=== PATIENT | female | born 1955 | race Caucasian/White ===

== ENCOUNTER → 2017-10-26 | Outpatient (CLI) | payer OTHER ==
[2017-10-28 16:09] LABS: HPV Genotype 16 Not Detected (NOTDET); HPV Genotype 18 Not Detected (NOTDET)
[2017-11-02 14:48] LABS: HPV High Risk Other Not Detected (NOTDET)
== END ==
LOC: OLS 15:17
PROVIDERS: Obstetrics & Gynecology Gynecology
DX: Z12.4 Encounter for screening for malignant neoplasm of cervix (principal)
CPT/HCPCS: 87624; G0123

== ENCOUNTER → 2018-01-12 | Outpatient (CLI) | payer OTHER | LOC: LAB 13:20 → LAB SHORT 13:20 | DX: R82.79 Other abnormal findings on microbiological examination of urine (principal) | CPT/HCPCS: 87077; 87086; 87186 ==

== ENCOUNTER → 2018-10-27 | Outpatient (CLI) | payer OTHER ==
[2018-10-31 14:07] LABS: HPV 16 Negative (Negative); HPV 18 Negative (Negative); HPV OTHER HR TYPES Negative (Negative)
== END ==
LOC: LAB 15:06 → LAB SHORT 15:06
PROVIDERS: Obstetrics & Gynecology Gynecology
DX: Z91.89 Other specified personal risk factors, not elsewhere classified (principal)
CPT/HCPCS: 87624; G0123

== ENCOUNTER 2018-12-26 08:08 | Day surgery (SDC) | payer OTHER ==
[2018-12-28 14:49] LABS: Performing Lab SYMBIODX
[2019-01-05] MEDS ORDERED: Prinivil10 MG PO (10:24)
[2019-01-05 16:02] LABS: Result SEE PATHOTH RESULTS; Test Name TISSUE BLOCK
== END 2018-12-26 22:47 | disposition home or self-care (01) ==
LOC: MOI US 08:08
PROVIDERS: Obstetrics & Gynecology Gynecology
PROC: 0HBU3ZX Excision of Left Breast, Percutaneous Approach, Diagnostic (ICD-10-PCS; principal; 2018-12-26)
DX: C50.412 Malignant neoplasm of upper-outer quadrant of left female breast (principal); Z17.1 Estrogen receptor negative status [ER-]
CPT/HCPCS: 19083; 77065; 88305; 88360; 88374; A4648; G0279

== ENCOUNTER 2019-01-06 08:24 | Day surgery (SDC) | payer OTHER ==
[~2019-01-06 08:24] MED LIST: Prinivil10 MG PO
== END 2019-01-06 23:04 | disposition home or self-care (01) ==
LOC: MOI US 08:24
PROC: BH41ZZZ Ultrasonography of Left Breast (ICD-10-PCS; principal; 2019-01-06)
DX: C50.312 Malignant neoplasm of lower-inner quadrant of left female breast (principal)
CPT/HCPCS: 19285; 77065

== ENCOUNTER 2019-01-11 07:51 | Day surgery (SDC) | payer OTHER ==
[~2019-01-11] VITALS: Ht 175.3 cm; Wt 115.2 kg
--- NOTE | 2019-01-11 12:56 | NUR ---
PATIENT GAVE PERMISSION FOR ME TO CARE FOR HER TODAY 01/11/19. History, Chart, Medications and Allergies reviewed before start of procedure.Patient confirms NPO status and agrees with scheduled surgery. Patient reports completing Chlorhexadine shower X2 prior to admission to hospital.Surgical site prepped with 2% Chlorhexidine cloth wipe. Lungs clear T/O to Auscultation.
--- NOTE | 2019-01-11 16:12 | NUR ---
This pt gave consent to this student nurse to be in the room while on surgery and view her chart.
--- NOTE | 2019-01-11 16:23 | NUR ---
STILL A LITTEL NAUSEAED, DECLINED PAIN MED @ THIS TIME.
--- NOTE | 2019-01-11 18:10 | NUR ---
PT WITH NAUSEA, IMMEDIATLY UPON ARRIVAL TO STEP MEDICATED WITH SECOND DOSE OF ZOFRAN. SOME INITIAL REPORT OF RELEIF OF NAUSEA REPORTED AFTER ZOFRAN. PT ABLE TO DRINK APPROX 2 OZ WATER, ATE ONE CRACKER THAN REPORTS INCREASED WAVE OF NAUSEA. HAS NOT SUBSIDED. CALL PLACED TO DR. SHELL TO SEE PATIENT. PATEINT REPORTS DOES NOT FEEL ABLE TO DISCHARGE AT THIS TIME.
--- NOTE | 2019-01-11 18:45 | NUR ---
DR SHELL CAME TO SEE PATIENT, ADMITTED TO ROOM 229. BEDSIDE REOPRT MEG MCKEON RN.
--- NOTE | 2019-01-12 04:33 | NUR ---
SUMMARY POD 1 S/P LEFT LUMPECTOMY. PT DOING GREAT THIS MORNING. WAS A LITTLE NAUSOUS WITH A MARQUEZ DURING FIRST PART OF SHIFT BUT THAT HAS RESOLVED. PT IS NOW TOLERATING PO, VOIDING WELL. DRESSING TO LEFT BREAST CDI AND BREAST BINDER IN PLACE. PLAN FOR DC HOME THIS AM. CALL LIGHT IN REACH.
--- NOTE | 2019-01-12 09:15 | NUR ---
discharge instructions reviewed with pt verbalized dr larson by earlier pt to leave dressing off after shower tomorrow
== END 2019-01-12 09:30 | disposition home or self-care (01) ==
LOC: RAD 07:51 → ORSCMMR 07:54 → RAD 08:45 → SURS 18:30 → RAD 01-12 09:30
PROVIDERS: Surgery
PROC: 0HBU0ZZ Excision of Left Breast, Open Approach (ICD-10-PCS; principal; 2019-01-11 14:00)
DX: C50.312 Malignant neoplasm of lower-inner quadrant of left female breast (principal); C77.3 Secondary and unspecified malignant neoplasm of axilla and upper limb lymph nodes; Z88.5 Allergy status to narcotic agent; Z88.8 Allergy status to other drugs, medicaments and biological substances; Z88.0 Allergy status to penicillin; Z17.1 Estrogen receptor negative status [ER-]
CPT/HCPCS: 38792; 76098; 88307; 88360; A9270-GY; A9520; J0690; J1100; J2250; J2370; J2405; J2704; J2710; J2765; J3010; J7120; Q9968

== ENCOUNTER 2019-01-27 13:48 | Emergency (ER) | payer OTHER ==
[~2019-01-27] VITALS: Ht 175.3 cm; Wt 117.9 kg
[2019-01-27 14:53] LABS: BASOPHILS ABSOLUTE AUTO 0.03 K/mm3 (0.00-0.23); BASOPHILS PERCENT AUTO 1 % (0-2); EOSINOPHILS ABSOLUTE AUTO 0.35 K/mm3 (0.00-0.68); EOSINOPHILS PERCENT AUTO 6 % (0-6); Hematocrit 40.8 % (33.0-51.0); Hemoglobin 12.5 g/dL (11.5-16.0); IMMATURE GRAN ABSOLUTE AUTO 0.02 K/mm3 (0.00-0.10); IMMATURE GRAN PERCENT AUTO 0 % (0-1); LYMPHOCYTES ABSOLUTE AUTO 1.56 K/mm3 (0.84-5.20); LYMPHOCYTES PERCENT AUTO 29 % (21-46); MONOCYTES ABSOLUTE AUTO 0.53 K/mm3 (0.16-1.47); MONOCYTES PERCENT AUTO 10 % (4-13); Mean Corpuscular HGB 24.8 pg (26.0-34.0); Mean Corpuscular HGB Conc 30.6 g/dL (31.5-36.5); Mean Corpuscular Volume 81 fL (80-100); Mean Platelet Volume 9.6 fL (9.1-12.4); NEUTROPHILS ABSOLUTE AUTO 2.98 K/mm3 (1.96-9.15); NEUTROPHILS PERCENT AUTO 55 % (41-73); Platelet Count 258 K/mm3 (150-400); RDW Coefficient Variation 15.6 % (11.7-14.2); RDW Standard Deviation 45.1 fL (35.1-46.3); Red Blood Cell Count 5.05 M/mm3 (3.80-5.20); White Blood Cell Count 5.47 K/mm3 (4.00-11.30)
[2019-01-27 15:25] LABS: Alanine Aminotransfer (ALT/SGP 17 U/L (12-78); Albumin, Blood 3.8 g/dL (3.4-5.0); Albumin/Globulin Ratio 1.1 (0.8-1.8); Alk Phos 87 U/L (50-136); Anion Gap 7 mmol/L (6-16); Aspartate Aminotrans (AST/SGOT 16 U/L (12-37); Bilirubin, Total 0.3 mg/dL (0.1-1.0); Blood Urea Nitrogen 23 mg/dL (8-24); Bun/Creatinine Ratio 27.8 (12.0-20.0); CO2, Blood 26 mmol/L (21-32); Calcium, Blood 8.9 mg/dL (8.5-10.1); Chloride, Blood 107 mmol/L (98-108); Creatinine, Blood 0.83 mg/dL (0.40-1.00); Globulin, Blood 3.6 g/dL (2.2-4.0); Glomerular Filtration Rate >60 (60-); Glucose, Blood 94 mg/dL (70-99); Potassium, Blood 3.9 mmol/L (3.5-5.5); Sodium, Blood 140 mmol/L (136-145); Total Protein, Blood 7.4 g/dL (6.4-8.2)
== END 2019-01-27 17:30 | disposition home or self-care (01) ==
LOC: ER 13:48
PROVIDERS: Physician Assistant
DX: G89.18 Other acute postprocedural pain (principal); Z88.5 Allergy status to narcotic agent; Z88.0 Allergy status to penicillin; Z88.8 Allergy status to other drugs, medicaments and biological substances; Z79.899 Other long term (current) drug therapy
CPT/HCPCS: 36415; 80053; 85025; 99283

== ENCOUNTER 2019-02-06 06:01 | Day surgery (SDC) | payer OTHER ==
[~2019-02-06] VITALS: Ht 175.3 cm; Wt 118.0 kg
--- NOTE | 2019-02-06 06:55 | NUR ---
Ambulatory in Day Surgery. History, Chart, Medications and Allergies reviewed before start of procedure. Lungs clear T/O to Auscultation. Patient confirms NPO status and agrees with scheduled surgery. Pre-Op teaching done. Pt verbalizes understanding. Patient States Post-Procedure ride home has been arranged.
--- NOTE | 2019-02-06 09:43 | NUR ---
Patient up to Ambulate independently. Gait steady. Discharge instructions reviewed with patient. Patient verbalizes understanding. Copy given to patient to take home. Patient States Post-Procedure ride home has been arranged. Discharged via wheelchair to private car for ride home.
== END 2019-02-06 22:43 | disposition home or self-care (01) ==
LOC: ORSCMMR 06:01 → ORD 07:30 → ORSCMMR 07:30
PROVIDERS: Surgery
PROC: B5181ZA Fluoroscopy of Superior Vena Cava using Low Osmolar Contrast, Guidance (ICD-10-PCS; principal; 2019-02-06 07:30)
PROC: 02HV33Z Insertion of Infusion Device into Superior Vena Cava, Percutaneous Approach (ICD-10-PCS; principal; 2019-02-06 07:30)
DX: C50.312 Malignant neoplasm of lower-inner quadrant of left female breast (principal); I10 Essential (primary) hypertension; Z79.899 Other long term (current) drug therapy; E66.01 Morbid (severe) obesity due to excess calories; Z68.39 Body mass index [BMI] 39.0-39.9, adult
CPT/HCPCS: 77001; C1788; J0690; J1642; J2250; J2704; J3010; J7120

== ENCOUNTER 2019-03-19 04:57 | Emergency (ER) | payer OTHER ==
[~2019-03-19] VITALS: Ht 175.3 cm; Wt 117.9 kg
[2019-03-19] MEDS ORDERED: METO10 PO (05:14)
[2019-03-19] MEDS ORDERED: LORA.5 PO (05:14)
[2019-03-19] MEDS ORDERED: CEFD300 PO (05:14)
[2019-03-19] MEDS ORDERED: MULTI VITAMIN1 EACH PO (05:15)
[2019-03-19] MEDS ORDERED: ONDA8 PO (05:15)
[2019-03-19 06:05] LABS: Hematocrit 32.7 % (33.0-51.0); Mean Corpuscular HGB Conc 30.6 g/dL (31.5-36.5); Mean Corpuscular Volume 82 fL (80-100); Mean Platelet Volume 9.7 fL (9.1-12.4); Platelet Count 192 K/mm3 (150-400); RDW Coefficient Variation 16.8 % (11.7-14.2); White Blood Cell Count 10.46 K/mm3 (4.00-11.30)
[2019-03-19 06:26] LABS: Alanine Aminotransfer (ALT/SGP 15 U/L (12-78); Albumin, Blood 3.1 g/dL (3.4-5.0); Albumin/Globulin Ratio 0.8 (0.8-1.8); Alk Phos 110 U/L (50-136); Anion Gap 8 mmol/L (6-16); Aspartate Aminotrans (AST/SGOT 18 U/L (12-37); Bilirubin, Total 0.3 mg/dL (0.1-1.0); Blood Urea Nitrogen 10 mg/dL (8-24); Bun/Creatinine Ratio 14.8 (12.0-20.0); CO2, Blood 24 mmol/L (21-32); Chloride, Blood 108 mmol/L (98-108); Creatinine, Blood 0.68 mg/dL (0.40-1.00); Globulin, Blood 3.8 g/dL (2.2-4.0); Glomerular Filtration Rate >60 (60-); Glucose, Blood 86 mg/dL (70-99); Potassium, Blood 4.6 mmol/L (3.5-5.5); Sodium, Blood 140 mmol/L (136-145); Total Protein, Blood 6.9 g/dL (6.4-8.2)
[2019-03-19 06:33] LABS: BAND PERCENT MAN 10 % (0-8); BASOPHILS PERCENT MAN 0 % (0-2); EOSINOPHILS PERCENT MAN 0 % (0-6); LYMPHOCYTES ABSOLUTE MAN 0.41 K/mm3 (0.84-5.20); LYMPHOCYTES PERCENT MAN 4 % (21-46); METAMYELOCYTE PERCENT MAN 2 % (0-0); MONOCYTES ABSOLUTE MAN 0.62 K/mm3 (0.16-1.47); MONOCYTES PERCENT MAN 6 % (4-13); SEG NEUTROPHILS PERCENT MAN 78 % (41-73); TOTAL CELLS COUNTED 100
[2019-03-19] MEDS ORDERED: Zofran4 MG PO (10:17)
[2019-03-19] MEDS ORDERED: Robaxin500 MG PO (10:17)
[2019-03-19] MEDS ORDERED: Percocet 5-3251 EACH PO (10:17)
[2019-03-19] MEDS ORDERED: Prednisone20 MG PO (10:17)
== END 2019-03-19 11:45 | disposition home or self-care (01) ==
LOC: ER 04:57
PROVIDERS: Emergency Medicine
DX: M26.621 Arthralgia of right temporomandibular joint (principal); Z88.5 Allergy status to narcotic agent; Z88.0 Allergy status to penicillin; Z79.899 Other long term (current) drug therapy; I10 Essential (primary) hypertension; Z85.3 Personal history of malignant neoplasm of breast
CPT/HCPCS: 36415; 70481; 80053; 85025; 96361; 96374-59; 96375-59; 96376-59; 99284-25; J0780; J1170; J1200; J2405; J2765; J7030; Q9967

== ENCOUNTER → 2021-09-14 | Outpatient (CLI) | payer OTHER ==
[~2021-09-14] MED LIST changes: +CEFD300 PO; +GABA300 PO; +LORA.5 PO; +METO10 PO; +MULTI VITAMIN1 EACH PO; +ONDA8 PO; +Percocet 5-3251 EACH PO; +Prednisone20 MG PO; +Robaxin500 MG PO; +Zofran4 MG PO
== END ==
LOC: LAB SHORT 12:18 → LAB 12:18
DX: N39.0 Urinary tract infection, site not specified (principal)
CPT/HCPCS: 87077; 87086; 87186

== ENCOUNTER → 2021-10-17 | Outpatient (CLI) | payer OTHER | END | disposition home or self-care (01) | LOC: LAB SHORT 13:49 | DX: R30.0 Dysuria (principal) | CPT/HCPCS: 87086 ==

== ENCOUNTER → 2023-09-07 | Outpatient (CLI) | payer MEDICARE, OTHER ==
[~2023-09-07] MED LIST changes: +ELDERTONIC LIQ473 ML; +HYDCHL25
== END | disposition home or self-care (01) ==
LOC: LAB SHORT 14:01 → LAB 14:01
DX: N39.0 Urinary tract infection, site not specified (principal)
CPT/HCPCS: 87077; 87086; 87186

== ENCOUNTER 2024-07-03 11:57 | Day surgery (SDC) | payer MEDICARE, OTHER ==
[2024-07-03] VITALS (11 sets, daily range): BP systolic 100–122; BP diastolic 46–72
[~2024-07-03] VITALS: Ht 172.7 cm; Wt 116.0 kg
[~2024-07-03 11:57] MED LIST changes: -ELDERTONIC LIQ473 ML; +ELDERTONIC LIQ473 ML PO; +HYDCHL25 PO; +VITAMIN D310 MC4 PO
[2024-07-03] MEDS ORDERED: Tylenol325 MG PO (12:36)
[2024-07-03] MEDS ORDERED: Acetaminophen 500 MG Tab PO SCH ×2 (12:40→16:00)
[2024-07-03] MEDS ORDERED: Lactated Ringer's 1,000 ML IV SCH ×2 (12:40→14:35)
[2024-07-03] MEDS ORDERED: CeFAZolin Sodium 2,000 MG in NS 100 ML IV SCH ×2 (12:40→22:00)
[2024-07-03] MEDS ORDERED: Ropivacaine 0.5% HCl/Pf 123.125 MG,EPINEPHrine HCL 0.25 MG,Ketorolac Tromethamine 15 MG... INFIL SCH (12:40)
[2024-07-03] MEDS ORDERED: Chlorhexidine Mouth Care 15 ML UDC MT SCH (12:40)
[2024-07-03] MEDS ORDERED: Tranexamic Acid 100 ML IV SCH (12:40)
--- NOTE | 2024-07-03 12:45 | NUR ---
History, Chart, Medications and Allergies reviewed before start of procedure. Patient confirms NPO status and agrees with scheduled surgery.
[2024-07-03] MEDS ORDERED: Gabapentin 300 MG Cap PO SCH (13:20)
[2024-07-03] MEDS ORDERED: propofoL 60 ML IV ONE (13:28)
[2024-07-03] MEDS ORDERED: Midazolam HCl 1MG / ML 2ML Vial ONE (13:31)
[2024-07-03] MEDS ORDERED: Ondansetron HCl 2 MG / ML 2ML Vial ONE (13:31)
[2024-07-03] MEDS ORDERED: Dexamethasone Sod Phos 10 MG/ML 1ML VIAL ONE (13:31)
--- NOTE | 2024-07-03 13:42 | NUR ---
PATIENT WAS GIVEN PERMISSION FROM DR DIAMNOD TO WEAR BRACELETS TO RIGHT WRIST, APPEARS SILVER METAL. COBAN WRAP APPLIED UNDER AND OVER BRACELETS AND PATIENT SIGNED WAIVER.
[2024-07-03] MEDS ORDERED: ePHEDrine Sulfate 50 MG/ML 1ML Injection ONE (14:10)
[2024-07-03] MEDS ORDERED: Glycopyrrolate 0.2 MG/ML 5ML VIAL ONE (14:23)
[2024-07-03] MEDS ORDERED: DiphenhydrAMINE HCL 25 MG Cap PO PRN (14:30)
[2024-07-03] MEDS ORDERED: FLU VACC TS2024-25(6MOS UP)/PF 45 MCG/0.5 ML SYRINGE IM SCH (14:30)
[2024-07-03] MEDS ORDERED: HYDROmorphone HCl/Pf 1MG SYR IV PRN (14:30)
[2024-07-03] MEDS ORDERED: Bisacodyl 10 MG Supp PR PRN (14:30)
[2024-07-03] MEDS ORDERED: OxyCODONE HCL 5 MG TAB PO PRN ×2 (14:30→14:35)
[2024-07-03] MEDS ORDERED: Promethazine HCl 25 MG Tab PO PRN (14:35)
[2024-07-03] MEDS ORDERED: Magnesium Hydroxide Conc 10 ML UDC PO PRN (14:35)
[2024-07-03] MEDS ORDERED: Ondansetron HCl 2 MG / ML 2ML Vial IV PRN (14:40)
[2024-07-03] MEDS ORDERED: Metoclopramide HCl 5MG / ML 2ML Vial IV PRN (14:40)
--- NOTE | 2024-07-03 14:46 | NUR ---
07/03/24 1446 Delia,Lora SPINAL BLOCK COMPLETED BY UPON ENTRY TO OR.
[2024-07-03] MEDS ORDERED: propofoL 40 ML IV ONE (15:24)
--- NOTE | 2024-07-03 16:23 | NUR ---
ARRIVAL TO UNIT PT ARRIVED TO UNIT S/P RTKA PT DENIES PAIN OR NAUSEA, EMOTIONAL ON ARRIVAL TO SEE SIGNIFICANT OTHER. ABLE TO SLIGHTLY WIGGLE LEFT TOES. WATER AND JELLO AT BEDSIDE. CALL LIGHT PROVIDED. EDUCATED PATIENT ON PAIN MANAGEMENT GOALS AND SHE WILL CALL AT BEGINNING OF PAIN SENSATION. PLAN IS TO WORK WITH THERAPY TOMORROW.
--- NOTE | 2024-07-03 17:56 | NUR ---
SHIFT SUMMARY POD 0 R TKA. NO ACUTE CHANGES THIS SHIFT. VSS. TOLERATING ORALS. AQUACEL C/D/I, POLAR PACK IN USE. PT REPORTS NUMBNESS TO BILAT LOWER EXTREMITIES. S/P SPINAL TO APPROX L2. PT REPORTS PAIN TOLERABLE, MEDICATED PER EMAR. AWAITING FIRST POST-OP VOID/AMB. ANTICIPATED TO WORK WITH PHYSCIAL THERAPY IN AM, THEN DISCHARGE HOME. AT BEDSIDE. CALL LIGHT IN REACH, BED IN LOWEST POSITION, WILL REPORT TO ALEENA RN.
[2024-07-03] MEDS ORDERED: Ketorolac Tromethamine 15mg Vial IV SCH (18:00)
[2024-07-03] MEDS ORDERED: Docusate Sodium 100 MG Cap PO SCH (21:00)
[2024-07-03] MEDS ORDERED: NS 250 ML IV PRN (22:15)
[2024-07-04 03:30] VITALS: BP 113/63
[2024-07-04 05:14] LABS: BASOPHILS PERCENT AUTO 0 % (0-2); EOSINOPHILS PERCENT AUTO 0 % (0-6); Hematocrit 37.2 % (33.0-51.0); Hemoglobin 11.7 g/dL (11.5-16.0); IMMATURE GRAN ABSOLUTE AUTO 0.03 K/mm3 (0.00-0.10); IMMATURE GRAN PERCENT AUTO 0 % (0-1); LYMPHOCYTES ABSOLUTE AUTO 0.68 K/mm3 (0.84-5.20); LYMPHOCYTES PERCENT AUTO 6 % (21-46); MONOCYTES ABSOLUTE AUTO 0.35 K/mm3 (0.16-1.47); MONOCYTES PERCENT AUTO 3 % (4-13); Mean Corpuscular HGB 25.4 pg (26.0-34.0); Mean Corpuscular HGB Conc 31.5 g/dL (31.5-36.5); Mean Corpuscular Volume 81 fL (80-100); Mean Platelet Volume 9.3 fL (9.1-12.4); NEUTROPHILS ABSOLUTE AUTO 10.53 K/mm3 (1.96-9.15); NEUTROPHILS PERCENT AUTO 91 % (41-73); Platelet Count 235 K/mm3 (150-400); RDW Coefficient Variation 15.4 % (11.7-14.2); RDW Standard Deviation 45.1 fL (35.1-46.3); White Blood Cell Count 11.59 K/mm3 (4.00-11.30)
[2024-07-04 06:07] LABS: Bun/Creatinine Ratio 26.8 (12.0-20.0); Calcium, Blood 9.2 mg/dL (8.5-10.1); Creatinine, Blood 0.71 mg/dL (0.40-1.00); Magnesium, Blood 1.7 mg/dL (1.6-2.4); Potassium, Blood 4.1 mmol/L (3.5-5.5)
[2024-07-04 07:06] VITALS: BP 116/46
[2024-07-04 07:07] VITALS: BP 108/67
--- NOTE | 2024-07-04 07:25 | NUR ---
SHIFT SUMMARY NOC. PT POD 1 FOR RIGHT TOTAL KNEE. PT AQUACEL C/D/I WITH POLAR PACK, RADHA HOSE, AND SCUDS IN PLACE. PT WAS ANXIOUS RE: PAIN CONTROL THIS SHIFT, PAIN WAS MANAGED WITH SCHEDULED TYLENOL AND TORADOL. ANXIETY IMPROVED WITH THERAPEUTIC COMMUNICATION AND SUPPORT. PT AMBULATING WITH FWW, GAIT BELT, AND SBA. PT VOIDING URINE AND TOLERATING PO. CALL LIGHT IN REACH.
[2024-07-04] MEDS ORDERED: Aspirin 81 MG Chew PO SCH (09:00)
[2024-07-04] MEDS ORDERED: Lisinopril 10 MG Tab PO SCH (09:00)
--- NOTE | 2024-07-04 11:00 | NUR ---
DISCHARGE SUMMARY POD1 R TKA, A/OX4, VSS, TOLERATING PO, PAIN WELL MANAGED, AMBULATING WELL, VOIDING INDEPENDENTLY, AQUACELL TO R KNEE X2 C/D/I, IV ACCESS REMOVED DURING DC INSTRUCTIONS. DISCUSSED DC INSTRUCTIONS INCLUDING HOME CARE, MEDICATIONS, AND FOLLOW UP APPOINTMENTS. ALL QUESTIONS ANSWERED AT TIME OF DISCHARGE. ESCORTED OUT BY EM TO GO HOME WITH HER .
== END 2024-07-04 11:17 | disposition home or self-care (01) ==
LOC: ORSCMMR 11:57 → ORD 12:45 → ORSCMMR 13:00 → ORD 13:00 → ORSCMMR 15:30 → ORD 15:30 → SURS 16:12 → ORD 17:00 → ORSCMMR 07-04 11:17
PROVIDERS: Orthopaedic Surgery
PROC: 0SRC0JA Replacement of Right Knee Joint with Synthetic Substitute, Uncemented, Open Approach (ICD-10-PCS; principal; 2024-07-03 15:30)
DX: M17.0 Bilateral primary osteoarthritis of knee (principal); I10 Essential (primary) hypertension; G62.0 Drug-induced polyneuropathy; E66.01 Morbid (severe) obesity due to excess calories; Z68.38 Body mass index [BMI] 38.0-38.9, adult; Z85.3 Personal history of malignant neoplasm of breast; Z79.899 Other long term (current) drug therapy
CPT/HCPCS: 36415; 73560-RT; 80048; 83735; 85025; 97110; 97116; 97162; 97530; A9270; C1713; C1776; J0171; J0690; J0735; J1100; J1885; J2250; J2405; J2704; J2795; J7050; J7120

== ENCOUNTER 2024-09-11 08:53 | Day surgery (SDC) | payer MEDICARE, OTHER ==
[2024-09-11] VITALS (16 sets, daily range): BP systolic 95–151; BP diastolic 52–92
[~2024-09-11] VITALS: Ht 175.3 cm; Wt 118.3 kg
[~2024-09-11 08:53] MED LIST changes: +Acetaminophen 500 MG Tab PO SCH; +Chlorhexidine Mouth Care 15 ML UDC MT SCH; +Clindamycin 900mg in D5W 50ML 50 ML IV SCH; +Lactated Ringer's 1,000 ML IV SCH; +Lisinopril-Hct1 EAC4 PO; +MERIBIN5 MG PO; +OxyCODONE HCL 10 MG TABCR PO SCH; -Prinivil10 MG PO; +Ropivacaine 0.5% HCl/Pf 123.125 MG,EPINEPHrine HCL 0.25 MG,Ketorolac Tromethamine 15 MG... INFIL SCH; +Tranexamic Acid 1,000 MG in NS 100 ML IV SCH; +Tylenol325 MG PO; -VITAMIN D310 MC4 PO; +VITAMIN D325 MC3 PO
[2024-09-11] MEDS ORDERED: Vancomycin HCL 1,000 MG in NS 250 ML IV SCH (09:00)
--- NOTE | 2024-09-11 09:49 | NUR ---
INTO [facility]. PT REPORTS 4/10 RIGHT KNEE PAIN. HISTORY AND ALLERGIES REVIEWED. PT REFUSES ALL NARCOTIC MEDICATIONS. LUNGS CLEAR-SATS>90% ON RA. NPO STATUS CONFIRMED. CHLORHEXIDINE SHOWER AND WIPE X 2. PT FULLY ADMITTED, BUT OR REP NOT AVAILABLE UNTIL 1100. PT TO 220 VIA BED.
[2024-09-11] MEDS ORDERED: Metoclopramide HCl 5MG / ML 2ML Vial IV PRN (10:40)
[2024-09-11] MEDS ORDERED: Magnesium Hydroxide Conc 10 ML UDC PO PRN (10:40)
[2024-09-11] MEDS ORDERED: FLU VACC TS2024-25(6MOS UP)/PF 45 MCG/0.5 ML SYRINGE IM PRN (10:45)
[2024-09-11] MEDS ORDERED: Bisacodyl 10 MG Supp PR PRN (10:45)
[2024-09-11] MEDS ORDERED: DiphenhydrAMINE HCL 25 MG Cap PO PRN (10:45)
[2024-09-11] MEDS ORDERED: Promethazine HCl 25 MG Tab PO PRN (10:45)
[2024-09-11] MEDS ORDERED: HYDROmorphone HCl/Pf 1MG SYR IV PRN (10:50)
[2024-09-11] MEDS ORDERED: Lactated Ringer's 1,000 ML IV SCH (10:50)
[2024-09-11] MEDS ORDERED: propofoL 100 ML IV ONE (11:00)
[2024-09-11] MEDS ORDERED: Ondansetron HCl 2 MG / ML 2ML Vial IV PRN ×2 (11:00→12:10)
[2024-09-11] MEDS ORDERED: FentaNYL Citrate 50 MCG/ML 2 ML Injection ONE (11:00)
[2024-09-11] MEDS ORDERED: Bupivacaine 0.75%/Dext 8.25% 2 ML Amp IT ONE (11:00)
[2024-09-11] MEDS ORDERED: Midazolam HCl 1MG / ML 2ML Vial ONE (11:00)
--- NOTE | 2024-09-11 11:05 | NUR ---
PT RETURNED TO [facility] VIA BED.AMBULATED TO BR HERSELF. MEDS AND IVF INITIATED.
[2024-09-11] MEDS ORDERED: ePHEDrine Sulfate 50 MG/ML 1ML Injection ONE (11:49)
[2024-09-11] MEDS ORDERED: Ketorolac Tromethamine 15mg Vial IV SCH (12:00)
[2024-09-11] MEDS ORDERED: FentaNYL Citrate 50 MCG/ML 2 ML Injection IV PRN (12:10)
[2024-09-11] MEDS ORDERED: Labetalol HCL 5 MG/ML 4ML Injection (Single Dose) IV PRN (12:10)
[2024-09-11] MEDS ORDERED: Prochlorperazine Edisylate 10 mg Vial IV PRN (12:10)
[2024-09-11] MEDS ORDERED: ePHEDrine Sulfate 50 MG/ML 1ML Injection IV PRN (12:10)
[2024-09-11] MEDS ORDERED: Ondansetron HCl 2 MG / ML 2ML Vial ONE (13:18)
[2024-09-11] MEDS ORDERED: Dexamethasone Sod Phos 10 MG/ML 1ML VIAL ONE (13:18)
[2024-09-11] MEDS ORDERED: Ketorolac Tromethamine 30mg Vial ONE (13:25)
[2024-09-11] MEDS ORDERED: Acetaminophen 500 MG Tab PO SCH (16:00)
--- NOTE | 2024-09-11 19:26 | NUR ---
SHIFT SUMMARY POD0 L TKA, A/OX4, VSS, TOLERATING PO, PAIN WELL MANAGED WITH NO NARCOTICS PER PATIENTS REQUEST, NO VOID TODAY, PERFORMED BS AND GOT 745, DISCUSSED OPTIONS FOR MANAGING HER BLADDER AND THEN SHE WAS ABLE TO VOID 700 SHORTLY AFTER. WORKED WITH THERAPY TODAY AND DID WELL. NO ACUTE EVENTS THIS SHIFT, CALL LIGHT IN REACH.
[2024-09-11] MEDS ORDERED: CeFAZolin Sodium 2,000 MG in NS 100 ML IV SCH (20:00)
[2024-09-11] MEDS ORDERED: Gabapentin 300 MG Cap PO SCH (21:00)
[2024-09-11] MEDS ORDERED: Docusate Sodium 100 MG Cap PO SCH (21:00)
[2024-09-12 04:06] VITALS: BP 126/75
--- NOTE | 2024-09-12 04:30 | NUR ---
SHIFT SUMMARY POD 1 L TKA. NO ACUTE CHANGES OVERNIGHT. VSS. TOLERATING ORALS. AQUACEL C/D/I. VOIDING. AMBULATES USING FWW c GB & SBA. PT REPORTS PAIN TOLERABLE, MEDICATED PER EMAR c POLAR PACK IN USE. ANTICIPATED TO WORK c PHYSCIAL THERAPY THEN DISCHARGE HOME LATER TODAY. PT DRESSED, RESTING IN CHAIR, CALL LIGHT IN REACH, WILL REPORT TO DAY RN.
[2024-09-12 05:10] LABS: BASOPHILS ABSOLUTE AUTO 0.01 K/mm3 (0.00-0.23); BASOPHILS PERCENT AUTO 0 % (0-2); EOSINOPHILS PERCENT AUTO 0 % (0-6); Hematocrit 36.6 % (33.0-51.0); Hemoglobin 11.1 g/dL (11.5-16.0); IMMATURE GRAN ABSOLUTE AUTO 0.06 K/mm3 (0.00-0.10); IMMATURE GRAN PERCENT AUTO 1 % (0-1); LYMPHOCYTES ABSOLUTE AUTO 0.78 K/mm3 (0.84-5.20); LYMPHOCYTES PERCENT AUTO 6 % (21-46); MONOCYTES ABSOLUTE AUTO 0.54 K/mm3 (0.16-1.47); MONOCYTES PERCENT AUTO 4 % (4-13); Mean Corpuscular HGB 24.9 pg (26.0-34.0); Mean Corpuscular HGB Conc 30.3 g/dL (31.5-36.5); Mean Corpuscular Volume 82 fL (80-100); Mean Platelet Volume 9.1 fL (9.1-12.4); NEUTROPHILS ABSOLUTE AUTO 11.64 K/mm3 (1.96-9.15); NEUTROPHILS PERCENT AUTO 89 % (41-73); Platelet Count 228 K/mm3 (150-400); RDW Coefficient Variation 14.6 % (11.7-14.2); RDW Standard Deviation 44.2 fL (35.1-46.3); Red Blood Cell Count 4.46 M/mm3 (3.80-5.20); White Blood Cell Count 13.03 K/mm3 (4.00-11.30)
[2024-09-12 05:36] LABS: Calcium, Blood 9.3 mg/dL (8.5-10.1); Creatinine, Blood 0.75 mg/dL (0.40-1.00); Potassium, Blood 4.3 mmol/L (3.5-5.5)
[2024-09-12] MEDS ORDERED: ACET500 PO (06:59)
[2024-09-12] MEDS ORDERED: ASPI81CH PO (07:00)
[2024-09-12 07:21] VITALS: BP 138/86
[2024-09-12] MEDS ORDERED: HydroCHLOROthiazide 25 mg Tab PO SCH (09:00)
[2024-09-12] MEDS ORDERED: Lisinopril 10 MG Tab PO SCH (09:00)
[2024-09-12] MEDS ORDERED: Aspirin 81 MG Chew PO SCH (09:00)
--- NOTE | 2024-09-12 10:56 | NUR ---
DISCHARGE SUMMARY POD1 L TKA, A/OX4, VSS, TOLERATING PO, PAIN WELL MANAGED WITH NO NARCOTICS PER PATIENT'S REQUEST, ROD X2 TO L KNEE/LLE C/D/I DISCUSSED DISCHARGEINFORMATIN WITH HER INCLUDING HOME CARE,MEDICATIONS, AND FOLLOW UP APPOINMTNETS. NO QUESTION AT THIS TIME. IV ACCESS REMVOED WHILE DISCUSSING DC INSTRUCTIONS.
== END 2024-09-12 10:15 | disposition home or self-care (01) ==
LOC: ORSCMMR 08:53 → ORD 13:00 → SURS 14:12 → ORSCMMR 09-12 10:15 → ORD 09-18 10:30
PROVIDERS: Orthopaedic Surgery
PROC: 0SRD0JA Replacement of Left Knee Joint with Synthetic Substitute, Uncemented, Open Approach (ICD-10-PCS; principal; 2024-09-11 11:30)
PROC: 8E0Y0CZ Robotic Assisted Procedure of Lower Extremity, Open Approach (ICD-10-PCS; principal; 2024-09-11 11:30)
DX: M17.12 Unilateral primary osteoarthritis, left knee (principal); Z96.651 Presence of right artificial knee joint; Z85.3 Personal history of malignant neoplasm of breast; I10 Essential (primary) hypertension; Z79.899 Other long term (current) drug therapy; E66.9 Obesity, unspecified; Z68.38 Body mass index [BMI] 38.0-38.9, adult
CPT/HCPCS: 36415; 73560-LT; 80048; 83735; 85025; 97110; 97116; 97161; 97530; A9270; C1713; C1776; J0171; J0690; J0735; J1100; J1885; J2250; J2405; J2704; J2795; J3010; J3370; J7050; J7120